=== PATIENT | female | born 1990 | race Caucasian/White ===

== ENCOUNTER 2024-02-12 08:58 | Emergency (ER) | payer MEDICAID ==
[~2024-02-12] VITALS: Ht 165.1 cm; Wt 60.0 kg
[2024-02-12 09:01] VITALS: TEMP 98.3
[2024-02-12] MEDS: ketorolac trometh 30MG/ML vial 30 MG/ML VIAL IM ONE (09:41)
[2024-02-12] MEDS ORDERED: IBUP-1985 PO (10:44)
[2024-02-12 10:55] VITALS: BP 115/71; PULSE 76; RESP 16; O2SAT 99
== END 2024-02-12 10:55 | disposition home or self-care (01) ==
LOC: ER 08:59
DX: M54.12 Radiculopathy, cervical region (principal); M62.838 Other muscle spasm; M54.2 Cervicalgia; M25.512 Pain in left shoulder; Z79.1 Long term (current) use of non-steroidal anti-inflammatories (NSAID)
CPT/HCPCS: 96372; 99283; J1885

== ENCOUNTER 2024-06-09 17:42 | Emergency (ER) | payer MEDICAID ==
[~2024-06-09] VITALS: Ht 165.1 cm; Wt 58.2 kg
[~2024-06-09 17:42] MED LIST: IBUP-1985 PO
[2024-06-09] MEDS ORDERED: PRED20TA PO (19:40)
[2024-06-09] MEDS ORDERED: AMOX-580 PO (19:40)
[2024-06-09] MEDS: dexamethasone sod phosphate 10mg/ml inj PO STA (19:52)
[2024-06-09] MEDS: ipratropium/albuterol 3ml nebule NEB STA (20:00)
[2024-06-09 20:01] VITALS: PULSE 81; RESP 18; O2SAT 99
[2024-06-09 20:03] VITALS: PULSE 91; RESP 18; O2SAT 100
[2024-06-09 20:17] VITALS: BP 111/66; PULSE 82; RESP 20; TEMP 98; O2SAT 99
== END 2024-06-09 20:18 | disposition home or self-care (01) ==
LOC: ER 17:43
DX: J32.9 Chronic sinusitis, unspecified (principal); J22 Unspecified acute lower respiratory infection; R50.9 Fever, unspecified
CPT/HCPCS: 71045; 94640; 99283; J1100